=== PATIENT | male | born 1945 ===

== ENCOUNTER 2021-11-03 13:40 | Inpatient (IN) ==
[2021-11-03 14:30] LABS: ABS Lymphocytes 1.1 10^3/ul (1.0-4.8); ABS Monocytes 0.5 10^3/ul (0-0.8); ABS Neutrophils 3.9 10^3/ul (1.5-7.7); Eosinophil % 0.1 %; Hematocrit 37 % (42-52); Hemoglobin 12.1 g/dL (14.0-18.0); Lymphocyte % 19.4 %; Mean Corpuscular HGB Conc 33 g/dL (31-36); Mean Corpuscular Hemoglobin 32 pg (27-31); Mean Corpuscular Volume 96 fL (80-94); Mean Platelet Volume 7.6 fL (7.4-10.4); Platelet Count 137 10^3/uL (150-450); Red Blood Count 3.83 10^6 /uL (4.18-5.48); Red Cell Distribution Width 15 % (10-15); White Blood Count 5.4 10^3/uL (3.5-10.8)
[2021-11-03 14:41] LABS: Activated Partial Thrombo Time 30.4 seconds (26.0-38.0); INR 1.1 (0.86-1.15); Venous Bicarbonate HCO3 24.1 mmol/L (24-28)
[2021-11-03 14:50] LABS: ALT 110 U/L (7-52); AST 240 U/L (13-39); Albumin 3.5 g/dL (3.2-5.2); Albumin/Globulin Ratio 1.3 (1-3); Alkaline Phosphatase 66 U/L (35-149); Blood Urea Nitrogen 28 mg/dL (6-24); C Reactive Protein 74.47 mg/L (<8.01); CO2 Carbon Dioxide 29 mmol/L (22-32); Calcium 8.4 mg/dL (8.6-10.3); Globulin 2.8 g/dL (2-4); Glucose 112 mg/dL (70-100); Potassium 3.7 mmol/L (3.5-5.0); Total Protein 6.3 g/dL (6.4-8.9); eGFR CKD-EPI 64.5 (>60)
[2021-11-03 15:00] LABS: Anion Gap 6 mmol/L (2-11); Chloride 119 mmol/L (101-111); Sodium 154 mmol/L (135-145)
[2021-11-03 15:02] LABS: Troponin I 0.05 ng/mL (<0.03)
[2021-11-03 15:07] LABS: LDH 504 U/L (140-271)
[2021-11-04] MEDS ORDERED: Haloperidol LIQ 10 MG/5 ML UDC PO PRN (07:40)
[2021-11-04] MEDS ORDERED: Lorazepam PYXIS KEY PRN (07:46)
[2021-11-04] MEDS ORDERED: Magnesium Hydroxide LIQ 30 ML UDC PO PRN (07:47)
[2021-11-04] MEDS ORDERED: Ondansetron 4 mg VIAL 2 MG/ML 2 ml VIAL IV PRN (07:48)
[2021-11-04] MEDS ORDERED: Acetaminophen IV 1 GM/100ML 100 ML IV PRN (07:48)
[2021-11-04] MEDS ORDERED: HYDROmorphone 0.5 MG/0.5 ML SYRINGE IV SLOW PU PRN (07:50)
[2021-11-04] MEDS ORDERED: Atropine 1% (ORAL/SL) 15 ML BTL SL PRN (07:55)
[2021-11-04] MEDS: LORazepam 2 mg VIAL 1 ml IV PUSH PRN ×3 (11:21→22:13)
[2021-11-05] MEDS: Morphine 2 MG/ML SYRINGE IV PRN (00:58)
[2021-11-05] MEDS: LORazepam 2 mg VIAL 1 ml IV PUSH PRN ×2 (12:56→20:52)
[2021-11-06] MEDS: LORazepam 2 mg VIAL 1 ml IV PUSH PRN ×4 (03:33→21:00)
[2021-11-06] MEDS: Morphine 2 MG/ML SYRINGE IV PRN (13:26)
[2021-11-07] MEDS: Morphine 2 MG/ML SYRINGE IV PRN ×2 (11:55→20:57)
[2021-11-07] MEDS: LORazepam 2 mg VIAL 1 ml IV PUSH PRN (20:55)
[2021-11-08] MEDS ORDERED: Polyethylene Glycol 3350 17 GM PACKET PO PRN (01:51)
[2021-11-08] MEDS ORDERED: Senna TAB 8.6 mg TAB PO PRN (01:52)
[2021-11-08] MEDS: LORazepam 2 mg VIAL 1 ml IV PUSH PRN ×2 (04:24→09:15)
[2021-11-08] MEDS: Morphine 2 MG/ML SYRINGE IV PRN ×2 (06:27→09:15)
[2021-11-08 11:21] VITALS: BP 118/56
== END 2021-11-08 12:45 | DRG 178 ==
LOC: ED 13:40 → SUATTDRO 17:29 → EDHOLD 17:29 → MED 20:06
PROVIDERS: ADMIT Hospitalist; ATTEND Internal Medicine